=== PATIENT | female | born 1995 | race Hispanic/Latino ===

== ENCOUNTER 2020-01-14 14:56 | Emergency (ER) | payer BC ==
--- NOTE | 2020-01-14 16:20 | RAD ---
XR Foot Lt 3 View STANDARD History: Fall Comparison: None. Findings: No acute displaced fracture malalignment. Subtle capsular calcification along the fifth tar sometatarsal joint seen only on the oblique radiograph. Impression: No acute osseous abnormality.
[2020-01-14] MEDS ORDERED: Boostrix 0.5 ML VIAL ONE (16:49)
[2020-01-14] MEDS ORDERED: Bacitracin 1 PK ONE (16:49)
[2020-01-14] MEDS ORDERED: Ondansetron ODT 4 MG TAB ONE (17:03)
== END 2020-01-14 17:16 | disposition home or self-care (01) ==
LOC: ERS 14:56
DX: S93.602A Unspecified sprain of left foot, initial encounter (principal); W10.9XXA Fall (on) (from) unspecified stairs and steps, initial encounter
CPT/HCPCS: 90471; 90715; Q0162